=== PATIENT | male | born 1960 | race Caucasian/White ===

== ENCOUNTER 2019-10-25 11:04 | Emergency (ER) | payer MEDICARE, MEDICAID ==
--- NOTE | 2019-10-25 11:22 | ER Document Report ---
ED General - General Stated Complaint: BEHAVIORAL ISSUES Time Seen by Provider: 10/25/19 11:08 Primary Care Provider: RACHELLE PELAYO MD [NO LOCAL MD] - Follow up as needed Mode of Arrival: Medic Information source: Patient, Emergency Med Personnel Notes: 59-year-old male arrives from home angry at his family but compliant with eye requests. He reports he did not want to come but he is ready to comply with any test that we may present to him. He reports he just got out of [facility] and [facility] last week. He reports he has stage IV lung cancer with bone cancer and throat cancer. Patient reports he used to smoke more than 4 packs of cigarettes per day and drinks bourbon. Both Miryam and myself spoke with patient about transfer to [place] as per 's request. Patient adamantly denied wanting to go anywhere else and wants to stay here. When asked about suicidal ideation he adamantly denies this. He reports "this is so everyone from time to time says stupid stuff." Patient also reports that the chemo in March has left him sometimes with stumble he feet he stumbled into some briars today. But otherwise he has steady gait and can walk into each room and requested a walk test. We did discuss with him the potential for radiation and chemotherapy last March affecting his mental health and physical health and potential for hepatic encephalopathy causing some of his recent erratic behavior. At this time he is quite alert and oriented. It is reported that today patient locked himself in his truck and said he was going to blow his brains out. Patient reports he has many guns in his house and if he want to do that anytime his life he would have already done that dammit. Also it is reported the patient had a hospice plan but this fell through. He would like some oxygen for his right hip. TRAVEL OUTSIDE OF THE [place] IN LAST 30 DAYS: No - HPI Onset: Just prior to arrival Onset/Duration: Sudden Quality of pain: No pain Severity: None Pain Level: Denies Associated symptoms: None Exacerbated by: Denies Relieved by: Denies Similar symptoms previously: Yes - Stage IV lung cancer with metastasis to bone and throat per patient Recently seen / treated by doctor: Yes - Related Data Allergies/Adverse Reactions: hydrocodone [Hydrocodone] Allergy (Mild, Verified 11/19/13 07:09) Generalized Itching Past Medical History - General Information source: Patient, Emergency Med Personnel - Social History Smoking Status: Current Every Day Smoker Cigarette use (# per day): Yes Chew tobacco use (# tins/day): No Smoking Education Provided: Yes Frequency of alcohol use: Occasional - Patient drinks leon [place] [employer]onta liquor Drug Abuse: None Lives with: Family Family History: Reviewed & Not Pertinent Patient has suicidal ideation: No Patient has homicidal ideation: No - Past Medical History Cardiac Medical History: Reports: Hx Coronary Artery Disease Denies: Hx Heart Attack, Hx Hypertension Pulmonary Medical History: Denies: Hx Asthma, Hx Bronchitis, Hx COPD, Hx Pneumonia Neurological Medical History: Denies: Hx Cerebrovascular Accident, Hx Seizures Musculoskeletal Medical History: Reports Hx Arthritis - Elbow and Shoulder and back - Immunizations Hx Diphtheria, Pertussis, Tetanus Vaccination: Yes - No Booster Review of Systems - Review of Systems Constitutional: See HPI, Malaise, Weakness EENT: No symptoms reported Cardiovascular: No symptoms reported Respiratory: No symptoms reported Gastrointestinal: No symptoms reported Genitourinary: No symptoms reported Male Genitourinary: No symptoms reported Musculoskeletal: No symptoms reported Skin: No symptoms reported Hematologic/Lymphatic: No symptoms reported Neurological/Psychological: No symptoms reported Physical Exam - Vital signs Vitals: Temp Pulse Resp BP Pulse Ox 98.7 F 98 17 109/59 L 98 10/25/19 11:16 10/25/19 11:16 10/25/19 11:16 10/25/19 11:16 10/25/19 11:16 Interpretation: Normal - General General appearance: Alert - HEENT Head: Normocephalic, Atraumatic Eyes: Normal Pupils: PERRL Sinus: Normal Nasal: Normal Pharynx: Normal Neck: Normal - Respiratory Respiratory status: No respiratory distress Chest status: Nontender Breath sounds: Decreased air movement Chest palpation: Normal - Cardiovascular Rhythm: Regular Heart sounds: Normal auscultation Murmur: No - Abdominal Inspection: Normal Distension: No distension Bowel sounds: Normal Tenderness: Nontender Organomegaly: No organomegaly - Genitourinary Tenderness: Other - deferred - Back Back: Normal - Extremities General upper extremity: Normal inspection General lower extremity: Normal inspection - Neurological Neuro grossly intact: Yes Cognition: Normal Orientation: AAOx4 [place] Coma Scale Eye Opening: Spontaneous [place] Coma Scale Verbal: Oriented [place] Coma Scale Motor: Obeys Commands Todd Coma Scale Total: 15 Speech: Normal Cranial nerves: Normal Cerebellar coordination: Normal Motor strength normal: LUE, RUE, LLE, RLE - Psychological Associated symptoms: Angry, Flat affect - Skin Skin Temperature: Warm Skin Moisture: Dry Course - Vital Signs Vital signs: Temp Pulse Resp BP Pulse Ox 98.7 F 98 17 109/59 L 98 10/25/19 12:02 10/25/19 11:16 10/25/19 11:16 10/25/19 11:16 10/25/19 11:16 - Laboratory Result Diagrams: 10/25/19 11:34 10/25/19 11:34 Laboratory results interpreted by me: 10/25/19 10/25/19 10/25/19 11:32 11:34 12:50 Sodium 135.5 L Chloride 97 L Carbon Dioxide 37 H Anion Gap 2 L Creatinine 0.44 L POC Glucose 119 H Calcium 7.4 L Total Bilirubin 2.7 H Direct Bilirubin 1.9 H AST 190 H ALT 95 H Alkaline Phosphatase 407 H Total Protein 4.9 L Albumin 2.6 L Urine Protein 30 H Urine Bilirubin SMALL H Urine Urobilinogen 4.0 H Urine Ascorbic Acid 40 H Critical Care Note - Critical Care Note Total time excluding time spent on procedures (mins): 60 Discharge - Discharge Clinical Impression: Reactive depression Lung cancer Qualifiers: Laterality: unspecified laterality Lung location: unspecified part of lung Qualified Code(s): C34.90 - Malignant neoplasm of unspecified part of unspecified bronchus or lung Condition: Good Disposition: PSYCH HOSP/UNIT Referrals: RACHELLE PELAYO MD [NO LOCAL MD] - Follow up as needed
[2019-10-25 12:02] LABS: ALBUMIN 2.6 g/dL (3.5-5.0); ALCOHOL < 10 mg/dL (NONE DETECTED); ALKALINE PHOSPHATASE 407 U/L (38-126); ASPARTATE AMINO TRANSFERASE 190 U/L (17-59); BILIRUBIN,DIRECT 1.9 mg/dL (0.0-0.4); BILIRUBIN,TOTAL 2.7 mg/dL (0.2-1.3); BLOOD UREA NITROGEN 18 mg/dL (7-20); CALCIUM 7.4 mg/dL (8.4-10.2); CHLORIDE 97 mmol/L (98-107); GLUCOSE 108 mg/dL (75-110); POTASSIUM 3.8 mmol/L (3.6-5.0); TOTAL PROTEIN 4.9 g/dL (6.3-8.2)
[2019-10-25 12:06] LABS: CARBON DIOXIDE 37 mmol/L (22-30)
[2019-10-25 12:07] LABS: ANION GAP 2 (5-19)
[2019-10-25 13:23] LABS: AMORPHOUS SEDIMENT,URINE TRACE /HPF; APPEARANCE,URINE CLOUDY; BILIRUBIN,URINE SMALL (NEGATIVE); COLOR,URINE AMBER; GLUCOSE, URINE NEGATIVE (NEGATIVE); KETONES,URINE NEGATIVE (NEGATIVE); LEUKOCYTE ESTERASE,URINE NEGATIVE (NEGATIVE); NITRITE,URINE NEGATIVE (NEGATIVE); PROTEIN,URINE 30 mg/dL (NEGATIVE); URINE SPECIFIC GRAVITY 1.023
[2019-10-25 14:22] LABS: HEMATOCRIT 26.2 % (37.9-51.0); HEMOGLOBIN 8.7 g/dL (13.5-17.0); MEAN CORPUSCULAR HEMOGLOBIN 33.9 pg (27.0-33.4); MEAN CORPUSCULAR HGB CONC 33.3 g/dL (32.0-36.0); MEAN CORPUSCULAR VOLUME 102 fl (80-97); RED BLOOD COUNT 2.58 10^6/uL (4.35-5.55); RED CELL DISTRIBUTION WIDTH 22.4 % (11.5-14.0); WHITE BLOOD COUNT 2.8 10^3/uL (4.0-10.5)
[2019-10-25 15:04] LABS: PLATELET COUNT 34 10^3/uL (150-450)
[2019-10-25 15:07] LABS: ABSOLUTE LYMPHOCYTES# (MANUAL) 0.2 10^3/uL (0.5-4.7); ABSOLUTE MONOCYTES # (MANUAL) 0.1 10^3/uL (0.1-1.4); BAND NEUTROPHILS % (MANUAL) 3 % (3-5); BASOPHILS % (MANUAL) 0 % (0-2); EOSINOPHILS % (MANUAL) 0 % (0-6); LYMPHOCYTES % (MANUAL) 7 % (13-45); METAMYELOCYTES % (MANUAL) 1 % (0-1); MONOCYTES % (MANUAL) 5 % (3-13); NUCLEATED RED BLOOD CELLS 2 /100 WBC (0); SEGMENTED NEUTROPHILS % (MAN) 83 % (42-78); TOTAL CELLS COUNTED 100
[2019-10-25 15:10] LABS: TOXIC GRANULATION 2+
[2019-10-25 15:11] LABS: ANISOCYTOSIS 3+; PLATELET COMMENT DECREASED; POIKILOCYTOSIS SLIGHT; POLYCHROMASIA 1+; SCHISTOCYTES SLIGHT
[2019-10-25 17:52] VITALS: BP 100/54
--- NOTE | 2019-10-25 21:37 | EKG REPORT ---
SEVERITY:- BORDERLINE ECG - SINUS RHYTHM PROBABLE LEFT ATRIAL ABNORMALITY BORDERLINE T WAVE ABNORMALITIES : Confirmed by: Darrell Ayers MD 25-Oct-2019 21:37:19
--- NOTE | 2019-10-26 01:37 | PSYCHOLOGICAL NOTE ---
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 Patient just finished chemotherapy, has cancer (Satge IV lung/bone/throat), AMS and was to be starting hospice at home today. Patient was eating a sandwich, crackers and cookies. He reported "feeling pretty good" when asked how he was. He identified "I got frustrated with things going on in my house and I made an off the wall statement, one everyone has made." He went on to say "I have owned guns all my life, I was brought up hunting/being outdoors and in the [place], have 25 shot guns I have collected over the years and from my father." Patient stated "I could have hurt myself at any time over the years but Anupam loves Anupam and is too good to hurt himself even if nobody else may love Anupam." When asked if he has ever done anything before to hurt/harm/kill self he stated "no ma'am." When asked about what was going on in the home he stated "someone is playing mind games with me." He went on to say "the past 2 weeks I have threatened to leave the home, go to closet, get clothes, put them in suitcase, stop to go to bathroom and come back to find suitcase empty and clothes put away." He stated "this goes on and on until I get tired of the back and forth." When suggested he has been through a lot medically does he think his mind could be playing tricks on him he said "no way my mind is playing tricks on me that much." He stated it happens with his pack of cigarettes and the TV remote when he steps away to go to the bathroom or kitchen. He noted "It is frustrating every time I think about it and I get a headache." Patient was alert and oriented to self, person, place, and situation. Mood was euthymic with congruent affect. He denied current SI/HI, previous attempts and admitted to making a comment out of frustration. Patient did not appear to be responding to internal stimuli as evidenced by fair eye contact and answering questions appropriately when addressed. Conversational speech was within normal limits for rate, tone and prosody. Thought process were linear. Intellectual abilities are estimated to be average. Insight, judgment and impulse control were fair as evidenced by discussing his trigger, identifying frustration and admitting statements he said with no action. Collateral (obtained from [facility] ED Behavioral Health Behavioral Health Director and following information copied and pasted from her note): The following collateral information was obtained from patients spouse, Sirisha ([phone]). Patient has stage IV lung cancer with bone cancer and throat cancer and he was just released from [facility] last week. Patient was recently informed there is nothing more we can do by his medical providers. Patient was set to begin Hospice services today, but he was sent to ED. Patients palliative care nurse informed the family that toxins are building in his liver and are affecting his mental health. Patient locked himself in the truck and would not open the door. Patient later came in like a mad man and packed his clothes and threatened to leave. Patient made suicidal statement regarding "blowing his brains out rather than dealing with this." requests patient to be transferred to [facility] where his Oncologist, Dr. Crane, practices. was recommended to collaborate with Dr. Crane, patients palliative care nurse, and Hospice to develop a plan of care going forward. Provided psychoeducation regarding toxins in the liver and chemo brain and their effect on mental and physical health. verbalized understanding. This clinician spoke to about removing all firearms from the home which she said had already been done. Interventions: Used open ended questioning to obtain information regarding current crisis situation and past, as well as to get patient to elaborate. Used coming alongside when patient talked about someone playing tricks on him at home. Challenged and confronted patient about his medical issues and to consider his mind playing tricks on him as a result. Diagnosis: Suicidal Ideation (statement out of frustration, means, no action, no reported intent) AMS likely due to neurocognitve issues as result of chemotherapy Impression/Plan: Patient is cleared from acute psychiatric services. 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 He was able to identify trigger to frustration being people playing mind games with him at home. He just had chemotherapy, was in a hospital until discharge last week and starting hospice/palliative care today. 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 Spoke to about removing firearms and she said it had already been done. She was able to get family for transportation home. The [facility] Behavioral Health team Behavioral Health Director had already provided psychoeducation regarding the neurocognitive decline as result of chemotherapy and and toxins in the liver, as well as encouraged to reach out to oncologist at [facility] with help of hospice and palliative care nurse for ongoing care and treatment. Consulted with Dr. Landaverde regarding the management and care of patient. ED Physician in agreement with recommendations.
== END 2019-10-25 17:54 | disposition home or self-care (01) ==
LOC: ER 11:04
DX: F32.9 Major depressive disorder, single episode, unspecified (principal); R45.851 Suicidal ideations; R45.4 Irritability and anger; C34.90 Malignant neoplasm of unspecified part of unspecified bronchus or lung; C79.89 Secondary malignant neoplasm of other specified sites; C79.51 Secondary malignant neoplasm of bone; Z92.21 Personal history of antineoplastic chemotherapy; I25.10 Atherosclerotic heart disease of native coronary artery without angina pectoris; R53.81 Other malaise; R53.1 Weakness; F17.210 Nicotine dependence, cigarettes, uncomplicated; Z88.6 Allergy status to analgesic agent; Z88.5 Allergy status to narcotic agent
CPT/HCPCS: 36415; 80053; 80307; 81001; 82140; 82962; 85025; 93005; 93010; 99285